=== PATIENT | male | born 1995 | race Caucasian/White ===

== ENCOUNTER → 2021-04-06 | Outpatient (CLI) | payer BC ==
[2021-04-06 11:26] LABS: HEMOGLOBIN 14.5 gm/dl (14.0-17.5); RED BLOOD COUNT 4.68 M/UL (4.20-5.50); WHITE BLOOD COUNT 3.2 K/UL (4.5-11.0)
[2021-04-06 11:47] LABS: BUN/CREATININE RATIO 15 (0-10)
== END ==
LOC: LAB 10:45
PROVIDERS: Emergency Medicine
DX: R00.2 Palpitations (principal); R63.5 Abnormal weight gain; R07.89 Other chest pain; E03.8 Other specified hypothyroidism
CPT/HCPCS: 36415; 71046; 80053; 83880; 84443; 84484; 85025; 85379; 93005